=== PATIENT | male | born 1955 | race Two or more races ===

== ENCOUNTER 2019-07-21 07:48 | Day surgery (SDC) | payer MEDICARE, OTHER ==
[~2019-07-21] VITALS: Ht 175.3 cm; Wt 83.9 kg
[2019-07-21] VITALS (10 sets, daily range): BP systolic 119–141; BP diastolic 64–76
--- NOTE | 2019-07-21 07:42 | Pre-Procedure Note/Attestation ---
Pre-Procedure Note/Attestation Complete Prior to Procedure Planned Procedure: not applicable Procedure Narrative: implantation of penile prosthesis Indications for Procedure Pre-Operative Diagnosis: impotence organic Attestation I attest that I discussed the nature of the procedure; its benefits; risks and complications; and alternatives (and the risks and benefits of such alternatives ), prior to the procedure, with the patient (or the patient's legal insurance claim representative). I attest that, if there was a reasonable possibility of needing a blood transfusion, the patient (or the patient's legal insurance claim representative) was given the [facility] standardized written summary, pursuant to the Jaime [place] Blood Safety Act ([place] Health and Safety Code # 1645, as amended). I attest that I re-evaluated the patient just prior to the surgery and that there has been no change in the patient's H&P, except as documented below: Guerrero Simons MD Jul 21, 2019 07:42
[~2019-07-21 07:48] MED LIST: ASPIR 8181 MG ORAL; CRESTOR40 MG ORAL; GLIPIZIDE5 MG ORAL; JANUMET 50-5001 EACH ORAL; PLAVIX75 MG ORAL; ZETIA10 MG ORAL; fish oil; fish oil PO
[2019-07-21] MEDS ORDERED: Vancomycin 1 GM in D5W 275 ML IVPB ONE (08:00)
--- NOTE | 2019-07-21 08:40 | NUR ---
IV LR WAS STARTED BY SVEN PRINCE RN.NO S/S OF INFILTRATION.
--- NOTE | 2019-07-21 08:40 | NUR ---
IV LR WAS STARTED BY SVEN PRINCE RN. NO S/S OF INFILTRATION.
[2019-07-21] MEDS ORDERED: LR 1000ml 1,000 ML IVLG SCH (09:20)
--- NOTE | 2019-07-21 09:23 | Anethesia Preoperative Eval ---
Anesthesia Pre-op PMH/ROS General Date of Evaluation: Jul 21, 2019 Time of Evaluation: 10:14 Anesthesiologist: Carmen ASA Score: ASA 3 Mallampati Score Class I : Soft palate, uvula, fauces, pillars visible Class II: Soft palate, uvula, fauces visible Class III: Soft palate, base of uvula visible Class IV: Only hard plate visible Mallampati Classification: Class II Surgeon: Ronak Diagnosis: Impotence Surgical Procedure: Penile Implant Anesthesia History: none Family History: no anesthesia problems Allergies: Coded Allergies: No Known Allergies (Unverified , 07/20/19) Medications: see eMAR Patient NPO?: Yes Past Medical History Cardiovascular: Reports: HTN, other - HL Gastrointestinal/Genitourinary: Reports: other - Impotence Endocrine: Reports: DM Anesthesia Pre-op Phys. Exam Physician Exam Last Vital Signs Date Time Temp Pulse Resp B/P (MAP) Pulse Ox O2 Delivery O2 Flow Rate FiO2 07/21/19 08:24 97.2 60 20 119/64 99 Room Air Constitutional: NAD Neurologic: CN 2-12 intact Cardiovascular: RRR Respiratory: CTA Gastrointestinal: S/NT/ND Airway Exam Mallampati Score: Class II MO: full ROM: full Teeth: missing Anesthesia Pre-op A/P Risk Assessment & Plan Assessment: ASA 3 Plan: GA Status Change Before Surgery: No Pre-Antibiotics Dru Gram Vancomycin, 80 mg Gentimicin IV Given Within 1 Hr of Incision: Yes Time Given: 10:21 Jayesh Morales MD Jul 21, 2019 09:23
[2019-07-21] MEDS ORDERED: Bacitracin 50000 Units Vial ONE (09:29)
[2019-07-21] MEDS ORDERED: Bacitracin Oint 15gm Tube TOPIC ONE (09:29)
[2019-07-21] MEDS ORDERED: NeoSporin Gu Irrig 1ml Amp IRRIG ONE (09:29)
[2019-07-21] MEDS ORDERED: oxyCODONE HCL/Acetaminophen 5/325mg ORAL PRN (09:30)
[2019-07-21] MEDS ORDERED: LORazepam Inj 2mg/ml 1ml IV PRN (09:30)
[2019-07-21] MEDS ORDERED: Midazolam 2mg/2ml Inj IVP PRN (09:30)
[2019-07-21] MEDS ORDERED: HYDROcodone/Acetamin 5/325 tab ORAL PRN ×2 (09:30→12:00)
[2019-07-21] MEDS ORDERED: Ketorolac 30mg Inj IV PRN ×2 (09:30)
[2019-07-21] MEDS ORDERED: Meperidine 50mg/ml Inj(FOR RIGORS ONLY) IVP PRN (09:30)
[2019-07-21] MEDS ORDERED: Labetalol 5mg/ml 20ml vial IV PRN (09:30)
[2019-07-21] MEDS ORDERED: DiphenhydrAMINE 50mg/ml Inj IVP PRN (09:30)
[2019-07-21] MEDS ORDERED: fentaNYL 100 mcg/2 mL IV PRN (09:30)
[2019-07-21] MEDS ORDERED: Metoclopramide 10mg/2ml Inj IVP PRN (09:30)
[2019-07-21] MEDS ORDERED: Acetaminophen (Non formulary) 100 ML IV ONE (09:30)
[2019-07-21] MEDS ORDERED: Hydromorphone 0.5mg/0.5ml inj IVP PRN (09:30)
[2019-07-21] MEDS ORDERED: Atropine Sulfate 0.4mg/ml inj IVP PRN (09:30)
[2019-07-21] MEDS ORDERED: HYDROcodone/Acetamin 7.5/325 tab ORAL PRN (09:30)
[2019-07-21] MEDS ORDERED: Vancomycin 1gm vial IVPB ONE (09:38)
[2019-07-21] MEDS ORDERED: Sterile Water Irrig 1000ml IRRIG ONE (10:14)
[2019-07-21] MEDS ORDERED: LR 1000ml ONE (10:14)
[2019-07-21] MEDS ORDERED: Lidocaine 1% MPF 10mg/ml 5ml ONE (10:17)
[2019-07-21] MEDS ORDERED: Propofol 200mg/20ml IV ONE (10:17)
[2019-07-21] MEDS ORDERED: Sodium Chloride 10ml vial INJ ONE (10:17)
[2019-07-21] MEDS ORDERED: fentaNYL 100 mcg/2 mL IV ONE (10:18)
[2019-07-21] MEDS ORDERED: Midazolam 2mg/2ml Inj ONE (10:18)
[2019-07-21] MEDS ORDERED: NS Irrig 1000ml IRRIG ONE (10:52)
[2019-07-21] MEDS ORDERED: Neostigmine 1mg/ml 10ml Inj ONE (10:59)
[2019-07-21] MEDS ORDERED: Glycopyrrolate 0.2mg/ml 1ml Vial ONE (10:59)
--- NOTE | 2019-07-21 11:16 | Immediate Post-Op Evaluation ---
Immediate Post-Op Evalulation Immediate Post-Op Evalulation Procedure: Penile Implant Date of Evaluation: Jul 21, 2019 Time of Evaluation: 12:17 IV Fluids: 1000 LR Blood Products: 0 Estimated Blood Loss: 25 Urinary Output: 100 Blood Pressure Systolic: 146 Blood Pressure Diastolic: 70 Pulse Rate: 73 Respiratory Rate: 16 O2 Sat by Pulse Oximetry: 99 Pain Score (1-10): 2 Nausea: No Vomiting: No Complications 0 Patient Status: awake, reacts, patent, extubated, none Hydration Status: adequate Dru Gram Vancomycin, 80 mg Gentimicin IV Given Within 1 Hr of Incision: Yes Time Given: 10:21 Jayesh Morales MD Jul 21, 2019 11:16
--- NOTE | 2019-07-21 11:17 | 48 Hour Post Anesthesia Eval ---
Post Anesthesia Evaluation Procedure: Penile Implant Date of Evaluation: Jul 21, 2019 Time of Evaluation: 14:23 Blood Pressure Systolic: 148 0: 74 Pulse Rate: 65 Respiratory Rate: 18 Temperature (Fahrenheit): 98.4 O2 Sat by Pulse Oximetry: 99 Airway: patent Nausea: No Vomiting: No Pain Intensity: 2 Hydration Status: adequate Cardiopulmonary Status: Stable Mental Status/LOC: patient returned to baseline Follow-up Care/Observations: 0 Post-Anesthesia Complications: 0 Follow-up care needed: ready to discharge Jayesh Morales MD Jul 21, 2019 11:17
[2019-07-21] MEDS ORDERED: HYDROmorphone 1mg/ml Carpuject SUBQ PRN (12:00)
[2019-07-21] MEDS ORDERED: Tylenol #3 tab (300mg/30mg) ORAL PRN (12:00)
[2019-07-21] MEDS ORDERED: Ketorolac 30mg Inj ONE (12:06)
--- NOTE | 2019-07-21 12:07 | Brief Operative Note ---
Immediate Post Operative Note Operative Note Pre-op Diagnosis: impotence organic Procedure: 3 piece penile prosthesis implantation Post-op Diagnosis: same Post-op Diagnosis: same as pre-op Surgeon: Anastacio Simons Anesthesia: general Specimen: none Complications: none Condition: stable Fluids: 500 Estimated Blood Loss: minimal Drains: none Implant(s) used?: Yes Guerrero Simons MD Jul 21, 2019 12:06
[2019-07-21] MEDS ORDERED: D5 1/2NS 1,000 ML IV SCH (16:00)
--- NOTE | 2019-07-21 21:30 | Operative Note - Dictated ---
DATE OF OPERATION: 07/21/2019 PREOPERATIVE DIAGNOSIS: Organic impotence. POSTOPERATIVE DIAGNOSIS: Organic impotence. OPERATION: Implantation of 3-piece penile prosthesis. SURGEON: Guerrero Simons M.D. ANESTHESIA: General. FINDINGS: Obstructed corpora. INDICATIONS FOR SURGERY: The patient has tried multiple treatments for erectile dysfunction and all the treatments failed. He was not able to achieve sustained erection. Treatment options were explained to him in great length including all potential complications. He signed the consent. DESCRIPTION OF PROCEDURE: He was brought to the operating room, placed in supine position, prepped and draped in a standard fashion. Under general anesthesia, a penoscrotal incision was made and corpora was mobilized on both sides of the urethra. Varela catheter was placed into the urethra to protect the bladder. After careful dissection of the corpora, it was opened approximately 1.5 cm on each side and dilated to 12 cm with Hegar dilators. It was measured to 20 cm and AMS prosthesis was placed and left indwelling. Corpora was then closed using running 2-0 Vicryl suture gaining transscrotal retroperitoneal access. The space was entered and dilated. A 60 mL reservoir was placed and left indwelling. Pump was then placed in the subdartos position and running 3-0 Vicryl sutures secured the position of the pump. Pump was then connected using special connectors to the reservoir and the prosthesis. The prosthesis was tested with good cosmetic results. No evidence of bleeding. Wound was closed in 3 layers, subcuticular closure for the skin. Guerrero Simons M.D. DR: FORTINO JOB#: [id number] CC:
== END 2019-07-21 14:45 | disposition home or self-care (01) ==
LOC: SUR 07:48
DX: N52.9 Male erectile dysfunction, unspecified (principal)
CPT/HCPCS: 54405; 82962; C1813; J1885; J2250; J2405; J2704; J2710; J3010; J3370; J7120; 94003; 94150